=== PATIENT | female | born 1990 | race Caucasian/White ===

== ENCOUNTER 2021-03-06 01:44 | Emergency (ER) | payer OTHER, SELFPAY ==
[2021-03-06 01:52] VITALS: BP 111/82; PULSE 102; RESP 16; TEMP 36; O2SAT 97; BMI 23.8
[2021-03-06 03:23] VITALS: BP 104/73; PULSE 80; RESP 18; O2SAT 97
--- NOTE | 2021-03-06 03:56 | ED_ITS ---
HPI - Back Pain/Injury General Chief Complaint: Back Pain/Injury Stated Complaint: lower back injury Time Seen by Provider: 03/06/21 03:54 Source: patient Mode of arrival: ambulatory History of Present Illness HPI Narrative: 31-year-old female without significant past medical history presents with reaching forward to turn the light off and than felt/heard a pop in her lower back was subsequent pain radiating into the top of bilateral but tocks and wraps around her anterior proximal thighs without bowel or bladder dysfunction and denies any numbness/tingling/weakness into either lower extremity. She states that she has had this happen before but it has been many years. Related Data Previous Rx's Medication Instructions Recorded cyclobenzaprine 5 mg tablet 5 mg PO BEDTIME PRN #4 tab 03/06/21 ketorolac 10 mg tablet 10 mg PO Q6H PRN 5 Days #20 tab 03/06/21 Allergies Allergy/AdvReac Type Severity Reaction Status Date / Time No Known Allergies Allergy Unverified 11/25/19 16:09 [No Known Allergies*] Review of Systems Review of Systems: Pertinent positives and negatives as stated in HPI 10 point review of systems is otherwise negative. COUNT INCLUDES THE [facility] Past Medical History Source: nursing notes reviewed Social History Social History Advance Directives: No Advance Directives Information Provided: Yes Patient : No Physical Exam Vital Signs: Vital Signs: Last Vital Signs Temp 96.8 F 03/06/21 01:52 Pulse 80 03/06/21 03:23 Resp 18 03/06/21 03:23 BP 104/73 03/06/21 03:23 Pulse Ox 97 03/06/21 03:23 BMI result Body Mass Index 23.8 VITAL SIGNS: Reviewed. GENERAL: Well developed, well nourished, in no acute distress. HEAD: Normocephalic/atraumatic EYES: PERRLA, EOMI LUNGS: Normal breath sounds. No adventitious sounds or accessory muscle use. SpO2<97> CARDIOVASCULAR: Regular rate and rhythm without noted murmurs ABDOMEN: Soft, non-tender, non-distended with bowel sounds. No rigidity. No guarding. No palpable masses or hernias noted BACK: No midline vertebral tenderness, straight leg test positive on the left, palpable pulses and sensation is intact tenderness on palpation at the left lumbar paraspinal NEUROLOGIC: Alert and oriented x 4. Strength and sensation to light touch were grossly intact x 4. Course Course Course Narrative: 31-year-old female with history and clinical presentation most consistent with muscle spasm and no evidence to suggest cauda equina, UTI. On reassessment, patient has had complete improvement of her symptoms and is otherwise stable for discharge to home with remaining course of analgesics. Discharge Plan Discharge Clinical Impression: Back pain, Muscle spasm Patient Disposition: Home, Self-Care Instructions: Muscle Spasm (ED), Back Pain (ED) Additional Instructions: 1. Tylenol 1000 mg, orally, every 6 hours as needed for pain control. Do not exceed 4000 mg within 24 hours. 2. Lidocaine patch, this is available [id number] and should be apply to area of maximal tenderness as directed on the outside packaging. 3. Please follow-up with your primary care provider in the next 1-2 days for re- evaluation further outpatient management. Return to the ER for worsening symptoms. Prescriptions: New cyclobenzaprine 5 mg tablet 5 mg PO BEDTIME PRN (Reason: muscle spasm) Qty: 4 RF: 0 ketorolac 10 mg tablet 10 mg PO Q6H PRN (Reason: pain) 5 Days Qty: 20 RF: 0 Referrals: Keira Grande MD [Primary Care Provider] - 2 days Stand Alone Forms: Work/School Release
[2021-03-06] MEDS: Ketorolac Tromethamine 30 MG/ML VIAL 15 MG IM (04:07)
[2021-03-06] MEDS: Lidocaine 4 % Patch ADH..PATCH 1 PATCH TRANSDERMA (04:07)
[2021-03-06] MEDS: Acetaminophen 325 MG TABLET 975 MG PO (04:08)
[2021-03-06] MEDS: Cyclobenzaprine HCl 5 MG TABLET PO (04:08)
== END 2021-03-06 05:23 | disposition home or self-care (01) ==
PROVIDERS: Emergency Provider Student in an Organized Health Care Education/Training Program; PCP Family Medicine
DX: M62.830 Muscle spasm of back (principal); M54.9 Dorsalgia, unspecified
CPT/HCPCS: 96372; 99284; J1885